=== PATIENT | female | born 1995 | race Caucasian/White ===

== ENCOUNTER → 2017-03-24 | Outpatient (CLI) | payer BC ==
[~2017-03-24] MED LIST: ALBU1AER9 INH; BCPILLS PO; FLUT0.0529 NAE; FLUT220A INH; SUMA25TA PO
== END | disposition home or self-care (01) ==
LOC: C.PAPS 15:55
PROVIDERS: ATTEND Obstetrics & Gynecology
DX: Z01.419 Encounter for gynecological examination (general) (routine) without abnormal findings (principal)